=== PATIENT | female | born 2000 | race Caucasian/White ===

== ENCOUNTER 2025-03-13 07:05 | Emergency (ER) | payer MEDICAID ==
[~2025-03-13] VITALS: Ht 162.6 cm; Wt 56.0 kg
[2025-03-13 07:13] VITALS: O2SAT 99
[2025-03-13] MEDS: ACETAMINOPHEN 325MG TABLET PO ONE (07:37)
[2025-03-13] MEDS ORDERED: TOPUD PO (08:51)
[2025-03-13 08:56] VITALS: BP 117/78; PULSE 65; RESP 16; TEMP 36.8; O2SAT 100
== END 2025-03-13 08:59 | disposition home or self-care (01) ==
LOC: ER 07:17
DX: M54.2 Cervicalgia (principal); M54.50 Low back pain, unspecified
CPT/HCPCS: 99284